=== PATIENT | male | born 1995 | race Caucasian/White ===

== ENCOUNTER → 2020-07-16 07:30 | Outpatient (CLI) | payer BC, SELFPAY ==
--- NOTE | 2020-07-16 07:35 | US_ITS ---
INDICATION: RUQ PAIN EXAMINATION: Ultrasound US Abdomen Limited (quadrant) TECHNIQUE: Randhawa scale imaging with graded compression and color doppler was obtained of the right lower quadrant. COMPARISON: None. INDICATION: Abnormal results of liver function studies R94.5 . Right upper quadrant abdominal swelling, mass and lump R19.01. COMPARISON: None. TECHNIQUE: Grayscale imaging was performed of the right upper abdominal quadrant. FINDINGS: Pancreas: There was suboptimal visualization of the pancreas due to overlying intestinal gas. Liver: Measures 15.66 cm. Liver shows normal echogenicity. No masses identified. Gallbladder: No stones or wall thickening. Negative sonographic Torres''s sign. Common bile duct: Measures 2.4 mm. No intraductal stones identified. Right kidney: Measures 10.26 x 4.48 x 5.52 cm in size with a cortex 1.6 cm cm in length. Normal contour. No cysts. No masses, stones, or hydronephrosis identified. Renal cortical thickness appears normal. Additional findings: None. US/Abdomen Limited IMPRESSION: Normal gallbladder ultrasound. Electronically Signed: Chucho Montoya, at 9:41 EST Tel , Service support ,
== END ==
PROVIDERS: PCP Family Medicine; Referring Provider Nurse Practitioner Family; Visit Provider Nurse Practitioner Family
DX: R10.11 Right upper quadrant pain (principal)
CPT/HCPCS: 76705

== ENCOUNTER → 2020-07-25 10:14 | Outpatient (CLI) | payer BC, SELFPAY ==
--- NOTE | 2020-07-25 10:22 | NM_ITS ---
STUDY: HEPATOBILARY SCINTGRAPHY REASON FOR EXAM: Male, 25 years old. Nausea after eating COMPARISON STUDIES : NM - None. CR - Not available for review at this time. CT - Not available for review at this time. MR - Not available for review at this time. Ultrasound 07/16/2020 Technique: After the administration of 5.5 mCi of technetium 99m Choletec intravenously, multiple scintigraphic images of the abdomen were obtained. After the administration of 1.5 mcg of Kinevac intravenously, a gallbladder ejection fraction was capped later. Findings: Homogeneous uptake of radiopharmaceutical throughout the hepatic parenchyma. Prompt excretion into the biliary tree first seen on the 30 minute image. Prompt visualization of the gallbladder first seen on the 30 minute image. Passage of radiopharmaceutical from the biliary tree into the small bowel ensuring patency of the common bile duct. After the administration of cholecystokinin intravenously, gallbladder ejection fraction is calculated. The gallbladder ejection fraction is 6% which is decreased consistent with chronic cholecystitis. NM/Hepatobilliary Img w/Pharm Int IMPRESSION: Chronic cholecystitis with a gallbladder ejection fraction of 6%. Electronically Signed: Shlomo Mccormick MD at 12:31 EST Tel , Service support ,
== END ==
PROVIDERS: PCP Family Medicine; Referring Provider Nurse Practitioner Family; Visit Provider Nurse Practitioner Family
DX: K81.1 Chronic cholecystitis (principal)
CPT/HCPCS: 78227; A9537; J2805

== ENCOUNTER 2020-08-07 09:16 | Day surgery (SDC) | payer BC, SELFPAY ==
[2020-07-31 08:33] VITALS: BMI 24.8
--- NOTE | 2020-08-06 11:48 | EKG12_ITS ---
Test Reason : PRE OP Blood Pressure : / mmHG Vent. Rate : 078 BPM Atrial Rate : 078 BPM P-R Int : 146 ms QRS Dur : 106 ms QT Int : 348 ms P-R-T Axes : 063 041 062 degrees QTc Int : 396 ms Normal sinus rhythm with sinus arrhythmia Normal ECG Confirmed by MARIO ALBERTO PERALTA, NORMAN ([id number]), staff editor AYANA STALEY ([id number]) on 08/09/2020 8:15:58 AM Referred By: Osman Abraham Confirmed By:NORMAN LLANES MD
[2020-08-07] VITALS (7 sets, daily range): BP systolic 128–165; BP diastolic 83–95; PULSE 68–85; RESP 16; TEMP 36.6–37.1; O2SAT 95–100; BMI 24.6
--- NOTE | 2020-08-07 07:47 | HP_ITS ---
Intake Vital Signs 07/31/20 Height 5 ft 9 in 07/31/20 Weight: 168 lb 6 oz 07/31/20 BMI 24.8 07/31/20 BP 122/91 H 07/31/20 Blood Pressure Location Rt brachial 07/31/20 Position Sitting 07/31/20 Respiration 18 07/31/20 Pulse 99 07/31/20 Pulse Source Monitor 07/31/20 Temp 97.6 F L 07/31/20 Temp Source Temporal 07/31/20 Pulse Oximetry (%) 98 07/31/20 Oxygen Delivery Method room air Intake Visit Reasons: GALLBALDDER, NAUSEA Chief Complaint: biliary dyskinesia Clinical Nursing Intern Required: No Accompanied by: Mother Is patient in pain?: No Allergies No Known Allergies Allergy (Unverified 07/31/20 08:34) Medications fexofenadine 60 mg tablet 60 mg PO DAILY tab 07/31/20 [History Confirmed 07/31/20] wwtdsisi-zryiqpdu-usihl acid 400 mcg-vit K 20 mcg-lycop 300 mcg tablet tab PO DAILY tab 07/31/20 [History Confirmed 07/31/20] PFSH Medical History Abdominal pain (Acute) Biliary dyskinesia (Acute) Nausea (Acute) Surgical History No history of previous surgery (Acute) Family History Mother Breast cancer Grandfather Diabetes Hypertension Grandmother Thyroid disorder Social History (Updated 07/31/20 @ 12:[address] Osman Abraham MD) Smoking Status: Never smoker alcohol intake: never substance use type: does not use HPI HPI Surgical H&P: Yes HPI: JOSE GODDARD, is a 25 M who presents to the office today for Right upper quadrant abdominal pain. Patient has been having right upper quadrant abdominal pain with food aversion since January. Originally was worked up with a gallbladder ultrasound which was negative. Subsequently underwent a HIDA scan with ejection fraction which showed his ejection fraction to be 6%. Patient states that when he underwent a HIDA scan with ejection fraction he felt all of the symptoms that have been bothering him since he was developing the symptoms back in January. ROS General General: Yes weight change; no appetite, fatigue, colon cancer, breast cancer or weakness HEENT HEENT: No difficulty swallowing, eye injury, eye surgery, swollen glands or hoarseness Endo Endocrine: No thyroid disease, diabetes mellitus, thyroid cancer, Hair loss, heat intolerance or cold intolerance Skin Skin: No rash or changing moles Breast Breast: No left breast lump, right breast lump, nipple discharge, breast pain, abnormal mammogram, abnormal US or breast enlargement Musc Musculoskeletal: No back problems, arthritis, rheumatoid arthritis, gout or joint pain Cardio Cardiovascular: No murmur, pacemaker, heart disease, atrial fibrillation, high blood pressure, heart attack, heart stent, palpitations, shortness of breat with exertion or chest pain Psych Psychiatric: No depression, anxiety or hearing voices Resp Respiratory: No shortness of breath, No sleep apnea, No cough, No COPD, No asthma, No emphysema, No wheezing Gastro Gastrointestinal: Yes abdominal pain, Yes nausea or vomiting, No diarrhea, No constipation, No blood in stool, No acid reflux, No hemorrhoids, No ulcers, Yes gallbladder problem, No black,tarry stools Aly Hematologic: No blood thinners, No blood disorders, No bleeding, No anemia, No blood clots Neuro Neurologic: No system reviewed and no additional complaints, except as docu, No as per HPI, No abnormal walking, No abnormal hearing, No abnormal movements, No abnormal speech, No behavioral changes, No burning sensations, No confusion, No seizure-like activity, No unsteadiness, No dizziness, No localized weakness, No frequent falls, No headache(s), No lack of coordination, No loss of vision, No memory loss, No numbness, No other visual disturbances, No radiating pain, No restless legs, No sensory deficit, No fainting, No tingling, No tremor(s), No weakness, No other Exam Const General: no acute distress, well developed, well hydrated Orientation: oriented to person, oriented to place, oriented to time [facility] Head: normocephalic, atraumatic Ears: external ears normal Mouth: moist mucous membranes Eyes Sclera: sclerae normal Pupils: normal by confrontation Neck Neck: no lymphadenopathy noted Neck mass: No Thyroid: thyroid normal, symmetrical Chest Chest palpation & inspection: normal inspection of the chest Breast Palpation: No nipple discharge Resp Effort & Inspection: normal respiratory effort Auscultation: clear to auscultation bilaterally Percussion: percussion normal Cardio Rate: regular rate Rhythm: regular rhythm Heart Sounds: no murmurs GI Palpation: soft, no hepatosplenomegaly, no masses, nontender Rectal Exam: other Other: Rectal exam deferred. Extrem General: normal to inspection, no clubbing, cyanosis or edema Assessment & Plan Problems 1. Biliary dyskinesia K82.8 Plan Reviewed the anatomy with the patient and discussed the procedure: Robotically assisted laparoscopic cholecystectomy with possible cholangiograms, possible open. Review risks including but not limited to bleeding, infection, hernia, bile leak, retained gallstones requiring another procedure ERCP- Endoscopic Retrograde Cholangiopancreatography, injury to another organ (bile ducts, common bile duct, small bowel, etc.) and conversion to an open procedure. All questions were answered. Coding Level of Care Code Off vis,new,level 3 Diagnoses Biliary dyskinesia K82.8 COVID (Procedure Consent) Procedure Criteria Procedure Criteria: Yes Elective The surgeon/proceduralist and patient have discussed in detail the risk of exposure to and/or potential harm posed by the COVID-19 virus with having a surgery/procedure at this time versus the risk of? delaying the surgery/procedure. It is not possible to know either the risk of delaying the surgery or procedure or chance of getting an infection with perfect accuracy, but a joint decision was made between the patient and the surgeon/proceduralist ?to proceed at this time with the scheduled surgery/procedure as indicated on the consent form. I have re-examined the patient. There are no clinical changes since date of exam.
[2020-08-07] MEDS: Lactated Ringers 1,000 ML 100 ML IV (09:59)
--- NOTE | 2020-08-07 11:29 | PCM.DC.GB ---
Discharge Diet: Light diet - advance as tolerated Discharge Activity: May Not Drive - for 2-3 days or while taking narcotic pain medications., - - Do not drive, work heavy equipment or sign legal documents for 24 hours. May shower in (days): 1 - with the bandage in place. Additional Activity Instructions:: Pain medication may cause nausea. You should typically eat light foods as you take your pain medications. Pain medication may also cause constipation. If this is a problem for you, please discuss with your doctor. Call your doctor if your incision/area has: Continuous Slow Oozing, Sudden Increased Bleeding, Increased Pain/ Swelling, Increased Redness, Foul Smelling Discharge Call your doctor if you observe: Fever of 101 or Higher Suture Line Care: Avoid Pulling/Pushing, Avoid Pinching/Bending Additional Dressing/Incision Instructions:: Leave operative bandaids on for 2 days. When you remove dressing, leave Steri-Strips on until your follow-up appointment, or until the Steri-Strips fall off on their own. Allergies/Adverse Reactions: Allergies No Known Allergies Allergy (Verified 08/07/20 09:38) Medications to take at Discharge fexofenadine 60 mg tablet 60 mg PO DAILY tab 07/31/20 dzdualic-amqrymfo-tyfug acid 400 mcg-vit K 20 mcg-lycop 300 mcg tablet 1 tab PO DAILY tab 07/31/20 Oxycodone HCl/Acetaminophen [Percocet 5/325] 1 - 2 tablet PO Q4H PRN PRN 6 Days #30 tablet 08/07/20 The following prescriptions were given: Oxycodone HCl/Acetaminophen [Percocet 5/325] 1 - 2 tablet PO Q4H PRN PRN 6 Days #30 tablet PRN Reason: Pain Transmission Status: Sent to [facility] Primary Care Physician: Dimas Carmona MD [Primary Care Provider] - Test Results: Test results from this visit will be discussed in further detail at your follow-up appointment, if applicable. Please Follow Up With: Osman Abraham MD - Please call [phone] to schedule an appointment. When: 7 days after your surgery.
--- NOTE | 2020-08-07 11:30 | GALL_PTH ---
PATIENT: JOSE GODDARD LOC: [facility] U#:[id number] AGE/SX: 25/M ROOM: RE08/07/[address]: Dr. Osman Abraham MD : [id number] BED: DIS: 08/07/2020 SPEC #: [id number] RECD: 08/07/20 14:27 STATUS: KURT REMino #: [id number] OLIVIA: 08/07/20 11:[address]: Osman Abraham DEPT: SURGICAL PATHOLOGY RECD BY: Cortney Narayan ENTERED: 08/08/20 09:45 SP TYPE: MARTY GOMEZ DR: Dr. Dimas Carmona MD Tissues: Gallbladder, NOS Procedures: Surgery Specimen Level III HEADER OPERATION: Robotic cholecystectomy PRE-OP DIAGNOSIS: Biliary dyskinesia TISSUE SUBMITTED: Gallbladder MICROSCOPIC DIAGNOSIS Gallbladder, cholecystectomy: Chronic cholecystitis. AM:andres 08/09/20 MICROSCOPIC DESCRIPTION Slides are reviewed. GROSS DESCRIPTION Received is one container labeled with the patient's name and designated gallbladder. The specimen consists of a gallbladder measuring 7 cm in length and 2.5 cm in diameter. The external surface is pink-berg, smooth and glistening for the most part. Focally it is granular, hemorrhagic and contains cautery artifact. The gallbladder contains green-yellow mucoid bile. No stones are identified in the container or in the gallbladder. The mucosa is bile-stained and without any mass lesions. The gallbladder wall measures up to 0.3 cm in thickness. Engineer Soils sections from the gallbladder and the cystic duct are submitted in one cassette. / SJ:rg 08/08/20 TC:3 CPT: 43757
--- NOTE | 2020-08-07 11:30 | PCM.OPRPT ---
Problem List (1) Biliary dyskinesia Status: Acute Report of Operation Date of Procedure: 08/07/20 Pre-Operative Diagnosis: Biliary dyskinesia Post-Operative Diagnosis: Same Surgery/Procedure Performed:: Robotically assisted laparoscopic cholecystectomy Type of Anesthesia:: General Anesthesiologist: Pratik Jalloh Estimated Blood Loss (mL): < 25 cc Description of Procedure: Patient was brought in the operating room. Placed in the supine position. Under excellent general endotracheal ovation abdomen was sterilely prepped and draped in usual fashion local was injected above the umbilicus incision was made dissection was carried down to the fascia the fascia grasped with a Sabrina varies needle was placed inside the abdomen abdomen was insufflated to 15 torr #8 trocar was placed without difficulty. Approximately a handsbreadth away both right lateral and left lateral nearly in the midclavicular line 2 more #8 trochars were placed under direct visualization and then further laterally on the right another #5 trocar was placed. The bed was placed in the head up position and rotated to the left. The robot was brought in and docked appropriately. A grasper went through the #5 trocar and grasped the fundus of the gallbladder and retracted in a cephalad direction. A prograsp was placed in the #2 port and scissors were placed in the #1 port I then went to the docking station. I dissected out the cystic duct and cystic artery I placed hemoclips proximally and distally on the duct and ligated it I placed clips on the cystic artery proximally and distally and ligated this. I deliver the gallbladder from the gallbladder bed with use of electrocautery I had excellent hemostasis I placed a suction spectrographer in a suctioned out all the bile from the gallbladder I then placed it in a specimen bag and it was delivered without difficulty. The robot was redocked I went back in and I used electrocautery on the liver bed I had good pneumostasis I irrigated out I had good pneumostasis trochars were removed under direct visualization good in the stasis was noted skin incisions were closed with subcuticular stitches of 4-0 Monocryl. Steri-Strips were applied. Sterile dressings were applied. Patient tolerated the procedure well. - Admit VTE Documentation VTE Present on Admission: No VTE Mechan Device Prophylaxis: SCD's VTE Pharm Prophylaxis ordered?: No Reason prophylaxis not ordered:: Treatment Not Indicated [id number]: [id number] Laparoscopic cholecystectomy
[2020-08-07] MEDS: Cefazolin 2 GM in 0.9% Normal Saline 100 ML IV (11:44)
[2020-08-07] MEDS: Bupivacaine Mpf 0.5% 30 ML VIAL (12:47)
== END 2020-08-07 16:34 | disposition home or self-care (01) ==
LOC: SDC 09:17 → AC 09:18
PROVIDERS: PCP Family Medicine; Referring Provider Surgery; Visit Provider Surgery
PROC: 0FT44ZZ Resection of Gallbladder, Percutaneous Endoscopic Approach (ICD-10-PCS; CPT 47562; principal; 2020-08-07 11:10)
DX: K82.8 Other specified diseases of gallbladder (principal); K81.1 Chronic cholecystitis; Z20.828 Contact with and (suspected) exposure to other viral communicable diseases
CPT/HCPCS: 00790; 47562; S2900; 87426; 88304; 93005; C9803; J7120; J2405

== ENCOUNTER 2021-03-17 13:17 | Emergency (ER) | payer OTHER, SELFPAY ==
[2020-08-07 09:39] VITALS: BMI 24.6
[2021-03-17 13:18] VITALS: BP 124/80; PULSE 73; RESP 16; TEMP 36.9; O2SAT 96; BMI 24.8
[2021-03-17 13:33] LABS: Bacteria 0 SEEN /hpf (None Seen); Color, Urine Yellow (Yellow); Glucose, Dipstick Normal (Normal); Ketone-Dipstick Negative (Negative); Leukocyte Esterase-Dipstick Negative /ul (Negative); Mucous, Urine 0 SEEN /hpf (<or=2+); Nitrite-Dipstick Negative (Negative); Occult Blood-Urine Negative /ul (Negative); Protein-Dipstick Negative (Negative); Red Blood Cells-Urine 0 SEEN /hpf (0-5); Squamous Epithelial Cells - UA 0 SEEN /hpf (0-5); Urine Bilirubin Dipstick Negative (Negative); Urine Clarity Clear (Clear); Urine Urobilinogen Normal (Normal); White Blood Cells 0 SEEN /hpf (0-5)
--- NOTE | 2021-03-17 14:11 | CT_ITS ---
STUDY: CT ABDOMEN AND PELVIS WITHOUT CONTRAST REASON FOR EXAM: Male, 25 years old. Kidney stone right flank pain RADIATION DOSAGE (If Supplied By Facility): CTDIvol = ( 6.25 ) mGy, DLP = ( 324.79 ) mGycm TECHNIQUE: Transaxial images were obtained from the dome of the diaphragm to the symphysis pubis without oral contrast, and without intravenous contrast. Sagittal and coronal images were reconstructed. Individualized dose optimization techniques were used for this CT. COMPARISON: None. FINDINGS: The visualized lung bases are unremarkable. The visualized portions of the heart are within normal limits. Normal liver. Normal gallbladder and extrahepatic biliary system. Normal spleen. Normal pancreas. Normal bilateral adrenal glands. Normal right kidney. Normal left kidney. Normal visualized stomach. Normal small intestine. Normal colon. The appendix is visualized and appears normal. Normal abdominal aorta. Normal inferior vena cava. Normal retroperitoneum. Normal urinary bladder. Normal abdominal wall. Normal osseous structures. CT/Abdomen/Pelvis without Cont IMPRESSION: Normal unenhanced CT of the abdomen and pelvis. No renal calculi. Electronically Signed: David Dinero MD at 15:06 EDT Tel , Service support ,
[2021-03-17 14:25] LABS: Absolute Lymphocyte Count 1.73 X10^3/uL (0.83-4.51); Absolute Neutrophil Count 3.8 X10^3/uL (2.0-7.7); Basophil# 0.05 X10^3/uL; Basophil% 0.8 % (0-1); Eosinophil# 0.08 X10^3/uL; Eosinophils% 1.3 % (0-5); Hematocrit 43.8 % (40-54); Hemoglobin 14.8 g/dL (13.0-16.5); Lymphocyte # 1.73 X10^3/ul (0.83-4.51); Lymphocyte % 27.8 % (19-41); Mean Corp Hgb Conc 33.8 g/dL (32-36); Mean Corpuscular Volume 88.7 fL (80-94); Mean Platelet Vol. 9.8 fl (6.2-12.0); Monocyte# 0.59 X10^3/uL; Monocyte% 9.5 % (0-10); NRBC Flagged by Analyzer 0 % (0-5); Neutrophil # 3.76 X10^3/uL (2.7-7.7); Neutrophil % 60.3 % (47-70); Platelet Count 231 K/mm3 (150-450); RBC Distribution Width CV 11.9 % (11.6-14.6); RBC Distribution Width SD 38.9 fl (35.1-43.9); Red Blood Count 4.94 M/mm3 (4.6-6.2); White Blood Count 6.2 K/mm3 (4.4-11.0)
[2021-03-17 14:33] LABS: Anion Gap 1 (5-15); BUN 14 mg/dL (7-18); BUN/Creat Ratio 14.9 RATIO (10-20); Calcium,Total 8.6 mg/dL (8.5-10.1); Chloride 109 mmol/L (98-107); Creatinine, Serum 0.94 mg/dL (0.70-1.30); EST Glomerular Filtration Rate 102 mL/min (>60); Est Glom Filt Rate - Afr Amer 124 mL/min (>60); Estimated Creatinine Clearance 119.09 ml/min; Glucose 84 mg/dL (74-106); Potassium 4.3 mmol/L (3.5-5.1); Sodium Level 142 mmol/L (136-145)
[2021-03-17] MEDS: 0.9% Normal Saline 1,000 ML 250 ML IV (14:54)
[2021-03-17] MEDS: Ondansetron 4 MG/2 ML Vial IV (14:55)
[2021-03-17] MEDS: Morphine 4 MG/ML Syringe IV (14:56)
[2021-03-17] MEDS: Ketorolac 30 MG/ML Syringe IV (14:57)
--- NOTE | 2021-03-17 15:22 | EDS_ITS ---
HPI History of Present Illness Chief Complaint: Flank Pain Informant: patient Onset/Context/Timing Onset: Days Context: Gradual Onset Current Severity: Mild Maximum Severity: Moderate Narrative Narrative: Patient presents secondary to right flank pain. He has had off-and-on pain for the past 5 days but seemed worse today. He has had prior k idney stones that felt similar. He denies any dysuria or change in his urine. He is having some occasional nausea. [facility] Medical History (Updated 03/17/21 @ 15:[address] Brandy Sellers MD) Abdominal pain Biliary dyskinesia Nausea Home Medications fexofenadine 60 mg tablet 60 mg PO DAILY tab 07/31/20 [History Last Taken Unknown] roxiiqur-duhobjhw-cbmuh acid 400 mcg-vit K 20 mcg-lycop 300 mcg tablet 1 tab PO DAILY tab 07/31/20 [History Last Taken Unknown] Allergy/AdvReac Type Severity Reaction Status Date / Time No Known Allergies Allergy Verified 03/17/21 13:18 Family History Mother Breast cancer Grandfather Diabetes Hypertension Grandmother Thyroid disorder Surgical History No history of previous surgery Social History Smoking Status: Never smoker alcohol intake: never substance use type: does not use ROS ROS ED Constitutional Constitutional ED: Denies chills or fever(s) Eyes Eyes: Denies change in vision ENT ENT ED: Denies sore throat Cardiovascular Cardiovascular: Denies chest pain Respiratory/Chest Respiratory/Chest: Denies cough or dyspnea Gastrointestinal Gastrointestinal: Reports abdominal pain and nausea; Denies diarrhea or vomiting Genitourinary Genitourinary ED: Denies dysuria or hematuria Musculoskeletal Musculoskeletal: Reports back pain Integumentary Denies rash Neurologic Neurologic: Denies headache(s) or weakness Psychiatric Psychiatric: Denies anxiety or depression Endocrine Endocrinology: Denies polydipsia or polyuria Allergic/Immunologic Allergic/Immunologic ED: Denies urticaria EXAM Physical Exam Const Vital Signs: 03/17/21 13:18 Temperature 98.5 F Temperature Source Temporal Pulse Rate 73 Respiratory Rate 16 Blood Pressure 124/80 H Blood Pressure Mean 94 Pulse Ox 96 Oxygen Delivery Method Room Air Positive well nourished and well developed General Appearance ED: well developed HEENT Reports normocephalic and head/scalp atraumatic Eyes PERRL and EOMs intact bilaterally Neck supple Chest Wall inspection of chest normal and palpation of chest normal Resp normal respiratory effort and clear to auscultation bilaterally Cardio regular rate and regular rhythm GI normal to inspection, nondistended, normoactive bowel sounds Palpation: soft Back/Spine no CVA tenderness Extremity normal to inspection Neuro oriented x3 and no sensory deficits noted Sensorium / Orientation: alert Motor Exam: strength 5/5 throughout Psych mental status grossly normal Skin no rashes or lesions noted MDM MDM MDM Narrative Medical decision making narrative: Patient was given morphine, Toradol, Zofran, IV fluids. Labs, CT, urinalysis obtained. Lab Data Attestation: I reviewed the patient's lab results. Labs: Laboratory Results - last 24 hr 03/17/21 03/17/21 03/17/21 13:27 13:54 13:54 WBC 6.2 RBC 4.94 Hgb 14.8 Hct 43.8 MCV 88.7 MCH 30.0 MCHC 33.8 RDW Std Deviation 38.9 RDW Coeff of Ej 11.9 Plt Count 231 MPV 9.8 Immature Gran % (Auto) 0.300 Neut % (Auto) 60.3 Lymph % (Auto) 27.8 [place] % (Auto) 9.5 Eos % (Auto) 1.3 Baso % (Auto) 0.8 Absolute Neuts (auto) 3.8 Absolute Lymphs (auto) 1.73 Nucleated RBC % 0 Sodium 142 Potassium 4.3 Chloride 109 H Carbon Dioxide 32.0 Anion Gap 1 L BUN 14 Creatinine 0.94 Estim Creat Clear Calc 119.09 Est GFR (MDRD) Af Amer 124 Est GFR (MDRD) Non-Af 102 BUN/Creatinine Ratio 14.9 Glucose 84 Calcium 8.6 Urine Color Yellow Urine Clarity Clear Urine pH 7.0 Ur Specific Jackson 1.010 Urine Protein Negative Urine Glucose (UA) Normal Urine Ketones Negative Urine Occult Blood Negative Urine Nitrite Negative Urine Bilirubin Negative Urine Urobilinogen Normal Ur Leukocyte Esterase Negative Urine RBC 0 SEEN Urine WBC 0 SEEN Ur Squamous Epith Cells 0 SEEN Urine Bacteria 0 SEEN Urine Mucus 0 SEEN Radiography Diagnostic Testing: Radiology Impression Abdomen/Pelvis CT 03/17/21 14:11 IMPRESSION: Normal unenhanced CT of the abdomen and pelvis. No renal calculi. Electronically Signed: David Dinero MD at 15:06 EDT Tel , Service support , Treatment and Re-Evaluation Comments:: On repeat evaluation patient resting comfortably. Patient's test results discussed with him and family at bedside. At this time I do not have a definitive cause for his pain. He does feel like his prior kidney stones and he may have recently passed a stone and still having some spasm. Patient denies any chest pain or shortness of breath. I do not feel that this represents a low er lobe pneumonia or PE. Patient will use ibuprofen at home for pain. Return instructions are provided. Discharge Plan Triage Chief Complaint: Flank Pain ED Provider: Brandy Sellers Dx/Rx/DC Orders Clinical Impression: Acute flank pain Instructions: ED Flank Pain, Uncertain Cause Prescriptions: No Action Men's Multivitamin 400-20-300 mcg tablet 1 tab PO DAILY RF: 0 fexofenadine [Nikole Allergy] 60 mg tablet 60 mg PO DAILY RF: 0 Primary Care Provider: Dimas Carmona Referrals: Dimas Carmona MD [Primary Care Provider] - As Needed Disposition Disposition: Home, Self Care
[2021-03-17 15:30] VITALS: BP 117/79; PULSE 55; RESP 16; O2SAT 100
== END 2021-03-17 15:33 | disposition home or self-care (01) ==
PROVIDERS: Emergency Provider Emergency Medicine; PCP Family Medicine
DX: R10.9 Unspecified abdominal pain (principal); R11.0 Nausea; Z87.442 Personal history of urinary calculi
CPT/HCPCS: 74176; 80048; 81001; 85025; 96361; 96374; 96375; 99284; J7030; A4216; J2405

== ENCOUNTER → 2024-11-14 | Outpatient (CLI) | payer OTHER, SELFPAY ==
[2024-11-14 17:54] LABS: Absolute Lymphocyte Count 1.78 X10^3/uL (0.83-4.51); Absolute Neutrophil Count 3.7 X10^3/uL (2.0-7.7); Basophil# 0.04 X10^3/uL; Basophil% 0.6 % (0-1); Eosinophil# 0.03 X10^3/uL; Eosinophils% 0.5 % (0-5); Hematocrit 47.1 % (40-54); Hemoglobin 16.3 g/dL (13.0-16.5); Lymphocyte # 1.78 X10^3/ul (0.83-4.51); Lymphocyte % 28.9 % (19-41); Mean Corp Hgb Conc 34.6 g/dL (32-36); Mean Corpuscular Hgb 29.6 pg (27.0-32.0); Mean Corpuscular Volume 85.6 fL (80-94); Mean Platelet Vol. 10.2 fl (6.2-12.0); Monocyte# 0.56 X10^3/uL; Monocyte% 9.1 % (0-10); NRBC Flagged by Analyzer 0 % (0-5); Neutrophil # 3.73 X10^3/uL (2.7-7.7); Neutrophil % 60.6 % (47-70); Platelet Count 260 K/mm3 (150-450); RBC Distribution Width CV 12.1 % (11.6-14.6); RBC Distribution Width SD 37.9 fl (35.1-43.9); White Blood Count 6.2 K/mm3 (4.4-11.0)
[2024-11-14 21:53] LABS: ALB/GLOB Ratio 1.6 RATIO (0.9-2.4); AST(SGOT) 33 U/L (<=37); Alanine Aminotransfer ALT/SGPT 53 U/L (<=46); Albumin, Serum 4.8 g/dL (3.5-5.0); Alkaline Phosphatase 68 U/L (40-129); Anion Gap 12 (5-15); BUN 15 mg/dL (4-19); BUN/Creat Ratio 16.2 RATIO (10-20); Calcium,Total 9.6 mg/dL (7.6-11.0); Carbon Dioxide 26.3 mmol/L (21.0-32.0); Chloride 103 mmol/L (98-108); Creatinine, Serum 0.94 mg/dL (0.70-1.20); EST Glomerular Filtration Rate 112 (>60); Glucose 89 mg/dL (70-99); Protein, Total 7.8 g/dL (5.9-8.4); Sodium Level 141 mmol/L (133-145); Total Bilirubin 1.35 mg/dL (0.00-1.30); Vitamin D,25 Hydroxy 29.5 ng/mL (30-100)
[2024-11-14 23:08] LABS: Cholesterol 194 mg/dL (<=200); High Density Lipoprotein 55 mg/dL; Low Density Lipoprotein Calc. 122 mg/dL; Triglycerides 87 mg/dL; Very Low Density Lipoprotein 17 mg/dL (5-40); cholesterol:hdl ratio screen 3.53
== END | disposition home or self-care (01) ==
LOC: MTLAB 16:19
PROVIDERS: PCP Family Medicine; Referring Provider Family Medicine; Visit Provider Family Medicine
DX: Z13.1 Encounter for screening for diabetes mellitus (principal); Z13.220 Encounter for screening for lipoid disorders; R53.83 Other fatigue
CPT/HCPCS: 36415; 80053; 80061; 82306; 85025